=== PATIENT | female | born 1990 | race Caucasian/White ===

== ENCOUNTER 2021-05-30 02:47 | Emergency (ER) | payer OTHER ==
[2021-05-30 03:06] VITALS: BP 119/65; PULSE 93; TEMP 98.2; BMI 19.9
[2021-05-30] MEDS ORDERED: DEXAMETHASONE 4 MG TABLET (FP) PO ONE (03:30)
[2021-05-30] MEDS ORDERED: DEXAMETHASONE SOD PHOSPHATE 10 MG/1 ML VIAL ONE (03:43)
[2021-05-30] MEDS ORDERED: ALBUTEROL SO4 2.5/IPRATROPIUM 0.5 INH SOL 3 ML VIAL.NEB. NEB ONE (03:56)
[2021-05-30] MEDS ORDERED: ALBUTEROL SO4 0.042% IH SOL 1.25 MG/3 ML VIAL.NEB NEB ONE (06:02)
[2021-05-30] MEDS ORDERED: ALBUTEROL SO4 0.083% IH SOL 2.5 MG/3 ML VIAL.NEB. NEB ONE (06:03)
== END 2021-05-30 06:10 | disposition home or self-care (01) ==
LOC: JER 02:47
PROC: 3E0F7GC Introduction of Other Therapeutic Substance into Respiratory Tract, Via Natural or Artificial Opening (ICD-10-PCS; principal; 2021-05-30)
DX: J45.901 Unspecified asthma with (acute) exacerbation (principal)
CPT/HCPCS: 71045-TC-FY; 84703; 99284-25; C9803; U0003; U0005

== ENCOUNTER 2022-05-08 18:51 | Emergency (ER) | payer OTHER ==
[2022-05-08 19:07] VITALS: BP 148/94; PULSE 86; RESP 18; TEMP 98.5; BMI 22.3
[2022-05-08] MEDS ORDERED: ALBUTEROL SO4 2.5/IPRATROPIUM 0.5 INH SOL 3 ML VIAL.NEB. NEB ONE ×2 (19:19→19:46)
[2022-05-08] MEDS ORDERED: predniSONE 20 MG TABLET (UD) PO ONE (19:26)
[2022-05-08] MEDS ORDERED: predniSONE 20 MG TABLET (UD) ONE (19:46)
== END 2022-05-08 20:35 | disposition home or self-care (01) ==
LOC: JER 18:51
PROC: 3E0F7GC Introduction of Other Therapeutic Substance into Respiratory Tract, Via Natural or Artificial Opening (ICD-10-PCS; principal; 2022-05-08)
DX: O99.512 Diseases of the respiratory system complicating pregnancy, second trimester (principal); J45.21 Mild intermittent asthma with (acute) exacerbation; Z3A.15 15 weeks gestation of pregnancy
CPT/HCPCS: 0241U-QW; 99284-25

== ENCOUNTER 2022-07-03 20:32 | Emergency (ER) | payer OTHER ==
[2022-07-03 20:38] VITALS: BP 134/87; RESP 22; TEMP 98.3; BMI 23.5
[2022-07-03] MEDS ORDERED: ALBUTEROL SO4 2.5/IPRATROPIUM 0.5 INH SOL 3 ML VIAL.NEB. NEB ONE (21:03)
[2022-07-03] MEDS: ALBUTEROL SO4 2.5/IPRATROPIUM 0.5 INH SOL 3 ML VIAL.NEB. NEB SCH ×2 (21:05→21:06)
[2022-07-03] MEDS ORDERED: DEXAMETHASONE SOD PHOSPHATE 10 MG/1 ML VIAL IM ONE (21:11)
[2022-07-03] MEDS ORDERED: DEXAMETHASONE SOD PHOSPHATE 10 MG/1 ML VIAL ONE (21:14)
[2022-07-03 22:56] VITALS: PULSE 100
[2022-07-03] MEDS ORDERED: ACETAMINOPHEN 500 MG TABLET (FP) PO ONE (22:56)
[2022-07-03] MEDS ORDERED: ACETAMINOPHEN 500 MG TABLET (FP) ONE (22:57)
== END 2022-07-03 23:00 | disposition home or self-care (01) ==
LOC: JERFT 20:32
PROC: 3E0F7GC Introduction of Other Therapeutic Substance into Respiratory Tract, Via Natural or Artificial Opening (ICD-10-PCS; principal; 2022-07-03)
PROC: 3E023NZ Introduction of Analgesics, Hypnotics, Sedatives into Muscle, Percutaneous Approach (ICD-10-PCS; 2022-07-03)
DX: J45.901 Unspecified asthma with (acute) exacerbation (principal); J09.X2 Influenza due to identified novel influenza A virus with other respiratory manifestations
CPT/HCPCS: 0241U-QW; 71045-TC-FY; 99284-25; J1100

== ENCOUNTER 2023-09-01 00:07 | Emergency (ER) | payer SELFPAY ==
[2023-09-01 00:15] VITALS: BP 117/74; PULSE 95; RESP 18; TEMP 98.2; BMI 25.7
[2023-09-01] MEDS ORDERED: predniSONE 20 MG TABLET (UD) PO ONE (00:46)
[2023-09-01] MEDS ORDERED: ALBUTEROL SO4 2.5/IPRATROPIUM 0.5 INH SOL 3 ML VIAL.NEB. NEB ONE (01:01)
[2023-09-01] MEDS ORDERED: predniSONE 20 MG TABLET (UD) ONE (01:02)
[2023-09-01] MEDS: ALBUTEROL SO4 2.5/IPRATROPIUM 0.5 INH SOL 3 ML VIAL.NEB. NEB SCH ×3 (01:11→01:40)
== END 2023-09-01 02:32 | disposition home or self-care (01) ==
LOC: JER 00:07
PROC: 3E0F7GC Introduction of Other Therapeutic Substance into Respiratory Tract, Via Natural or Artificial Opening (ICD-10-PCS; principal; 2023-09-01)
DX: R06.02 Shortness of breath (principal); R09.81 Nasal congestion; J45.901 Unspecified asthma with (acute) exacerbation; Z20.822 Contact with and (suspected) exposure to COVID-19
CPT/HCPCS: 0241U-QW; 99283-25

== ENCOUNTER 2024-04-23 09:07 | Emergency (ER) | payer OTHER ==
[2024-04-23 09:14] VITALS: BP 143/97; PULSE 99; RESP 18; TEMP 97.3; BMI 25.7
[2024-04-23] MEDS ORDERED: FAMOTIDINE 20 MG/50 ML IVPB 20 MG/50 ML MG IVPB ONE (09:30)
[2024-04-23] MEDS ORDERED: ONDANSETRON 4 MG/2 ML VIAL ONE (09:30)
[2024-04-23] MEDS: SODIUM CHLORIDE 0.9% 1000 ML INFUS.BAG IV ONE (09:40)
[2024-04-23] MEDS: FAMOTIDINE 20 MG/50 ML IVPB 20 MG/50 ML MG IVPB ONE (09:41)
[2024-04-23] MEDS: MAG HYDROX/AL HYDROX/SIMETH 30 ML UNIT-DOSE CUP PO ONE ×2 (09:41→12:24)
[2024-04-23] MEDS: ONDANSETRON 4 MG/2 ML VIAL IVPUSH ONE (09:41)
[2024-04-23 10:17] LABS: HCG,QUALITATIVE URINE Negative
[2024-04-23 10:24] LABS: HEMATOCRIT 46.7 % (32.4-45.2); HEMOGLOBIN 15.2 G/dL (10.7-15.3); MCH 28.6 pg (25.7-33.7); MCHC 32.4 g/dl (32.0-36.0); MEAN CELL VOLUME 88.3 fl (80-96); MEAN PLT VOLUME 9.2 fl (7.5-11.1); RBC 5.29 10^6/uL (3.60-5.2); RDW 14.6 % (11.6-15.6); WHITE BLOOD COUNT 8.2 10^3/uL (4.0-10.8)
[2024-04-23 10:29] LABS: ALBUMIN 4.7 g/dl (3.4-5.0); CALCIUM 9.4 mg/dl (8.5-10.1); CREATININE 1.3 mg/dl (0.6-1.3); POTASSIUM 4.8 mmol/L (3.5-5.1); TOT PROT 8.1 g/dl (6.4-8.2)
[2024-04-23] MEDS ORDERED: ACETAMINOPHEN INJECTION 100 ML ONE (10:42)
[2024-04-23] MEDS: ACETAMINOPHEN 1000 MG/100 ML BAG IVPB ONE (10:48)
[2024-04-23 10:49] LABS: PLATELET ESTIMATE ADEQUATE
[2024-04-23] MEDS ORDERED: KETOROLAC TROMETHAMINE 15 MG/ML VIAL ONE (11:50)
[2024-04-23] MEDS: KETOROLAC TROMETHAMINE 15 MG/ML VIAL IVPUSH ONE (11:57)
[2024-04-23] MEDS ORDERED: LIDOCAINE VISCOUS 2% ORAL/TOP 15 ML UNIT-DOSE CUP ONE (12:21)
[2024-04-23] MEDS ORDERED: MAG HYDROX/AL HYDROX/SIMETH 30 ML UNIT-DOSE CUP ONE (12:21)
[2024-04-23] MEDS: LIDOCAINE VISCOUS 2% ORAL/TOP 15 ML UNIT-DOSE CUP MM ONE (12:25)
== END 2024-04-23 13:27 | disposition home or self-care (01) ==
LOC: FER 09:07
PROC: 3E033GC Introduction of Other Therapeutic Substance into Peripheral Vein, Percutaneous Approach (ICD-10-PCS; principal; 2024-04-23)
PROC: 3E033NZ Introduction of Analgesics, Hypnotics, Sedatives into Peripheral Vein, Percutaneous Approach (ICD-10-PCS; 2024-04-23)
PROC: 3E0333Z Introduction of Anti-inflammatory into Peripheral Vein, Percutaneous Approach (ICD-10-PCS; 2024-04-23)
PROC: 3E033GC Introduction of Other Therapeutic Substance into Peripheral Vein, Percutaneous Approach (ICD-10-PCS; 2024-04-23)
DX: R10.31 Right lower quadrant pain (principal); R11.2 Nausea with vomiting, unspecified; R19.7 Diarrhea, unspecified
CPT/HCPCS: 36415; 74177-TC; 80053; 81003; 81015; 83690; 84703; 85027; 96365; 96375; 99285-25; J0131; Q9967

== ENCOUNTER 2024-08-29 17:17 | Emergency (ER) | payer OTHER ==
[2024-08-29 17:37] VITALS: BP 134/84; PULSE 102; RESP 18; TEMP 99.7; BMI 25.7
[2024-08-29] MEDS ORDERED: ACETAMINOPHEN 500 MG TABLET (FP) ONE (18:21)
[2024-08-29] MEDS: ACETAMINOPHEN 500 MG TABLET (FP) PO ONE (18:27)
[2024-08-29] MEDS ORDERED: ALBUTEROL SO4 2.5/IPRATROPIUM 0.5 INH SOL 3 ML VIAL.NEB. NEB ONE (18:28)
[2024-08-29] MEDS ORDERED: predniSONE 20 MG TABLET (UD) ONE (18:28)
[2024-08-29] MEDS: ALBUTEROL SO4 2.5/IPRATROPIUM 0.5 INH SOL 3 ML VIAL.NEB. NEB SCH (18:34)
[2024-08-29] MEDS: predniSONE 20 MG TABLET (UD) PO ONE (18:34)
[2024-08-29 18:54] LABS: THROAT:GRP A STREP NOT DETECTED (NOTDETECTED)
== END 2024-08-29 18:57 | disposition home or self-care (01) ==
LOC: JERFT 17:17 → JER 17:17 → JERFT 18:57
PROC: 3E0F7GC Introduction of Other Therapeutic Substance into Respiratory Tract, Via Natural or Artificial Opening (ICD-10-PCS; principal; 2024-08-29)
DX: J10.1 Influenza due to other identified influenza virus with other respiratory manifestations (principal); R50.9 Fever, unspecified; R05.9 Cough, unspecified; M79.10 Myalgia, unspecified site; R06.2 Wheezing; Z20.822 Contact with and (suspected) exposure to COVID-19
CPT/HCPCS: 0241U-QW; 87651; 99283-25

== ENCOUNTER 2024-08-31 10:13 | Inpatient (IN) | payer OTHER ==
[2024-08-31] MEDS ORDERED: ALBUTEROL SO4 0.083% IH SOL 2.5 MG/3 ML VIAL.NEB. NEB ONE ×2 (10:36→17:05)
[2024-08-31] MEDS: ALBUTEROL SO4 0.083% IH SOL 2.5 MG/3 ML VIAL.NEB. NEB ONE (10:42)
[2024-08-31 11:33] LABS: BASO % 0.4 % (0-2.0); EOS % 0.1 % (0-4.5); LYMPH % 10.3 % (8-40); MCH 28.7 pg (25.7-33.7); MCHC 32.6 g/dl (32.0-36.0); MEAN PLT VOLUME 8.9 fl (7.5-11.1); MONO % 9.8 % (3.8-10.2); NEUT % 79.4 % (42.8-82.8); PLATELET COUNT 193 10^3/uL (134-434); RBC 4.89 M/mm3 (3.60-5.2); RDW 14.5 % (11.6-15.6); WHITE BLOOD COUNT 7.1 K/mm3 (4.0-10.0)
[2024-08-31 11:49] LABS: POTASSIUM 3.7 mmol/L (3.5-5.1)
[2024-08-31 11:51] LABS: EPI CELLS 9 /uL (0-25.1); HYALINE CASTS 1 /uL (0-3.1); PH,URINE 5.5 (5.0-8.0); URINE APPEARANCE CLEAR; URINE BACTERIA 217 /uL (0-1359); URINE BILIRUBIN NEGATIVE (NEGATIVE); URINE COLOR YELLOW; URINE GLUCOSE (UA) NEGATIVE (NEGATIVE); URINE KETONE NEGATIVE (NEGATIVE); URINE LEUK ESTERASE NEGATIVE (NEGATIVE); URINE NITRITE NEGATIVE (NEGATIVE); URINE PROTEIN 2+ (NEGATIVE); URINE UROBILINOGEN 0.2 mg/dL (0.2-1.0); URINE WBC 8 /uL (0-25.8)
[2024-08-31 11:51] LABS: ALBUMIN 3.9 g/dl (3.4-5.0)
[2024-08-31 11:54] LABS: CREATININE 1.5 mg/dL (0.55-1.3)
[2024-08-31 11:56] LABS: BILIRUBIN,TOTAL 0.3 mg/dL (0.2-1); TOT PROT 7.9 g/dl (6.4-8.2)
[2024-08-31] MEDS: SODIUM CHLORIDE 0.9% 500 ML INFUS.BAG IV ONE (12:01)
[2024-08-31 12:21] LABS: URINE RBC 19 /uL (0-23.9)
[2024-08-31 12:26] LABS: MAGNESIUM 2.4 mg/dL (1.8-2.4)
[2024-08-31] MEDS: SODIUM CHLORIDE 1,000 ML IV STA (15:02)
[2024-08-31] MEDS ORDERED: ACETAMINOPHEN INJECTION 100 ML ONE (15:11)
[2024-08-31] MEDS: ACETAMINOPHEN 1000 MG/100 ML BAG IVPB ONE (15:12)
[2024-08-31] MEDS: ALBUTEROL SO4 0.083% IH SOL 2.5 MG/3 ML VIAL.NEB. NEB PRN (17:44)
[2024-08-31 23:19] VITALS: RESP 18; BMI 25.4
[2024-09-01] MEDS: ACETAMINOPHEN 1000 MG/100 ML BAG IVPB ONE (03:17)
[2024-09-01] MEDS: MELATONIN 5 MG TABLETS PO ONE (04:39)
[2024-09-01 07:59] LABS: HEMATOCRIT 43.6 % (32.4-45.2); HEMOGLOBIN 14.3 GM/dL (10.7-15.3); MCH 28.9 pg (25.7-33.7); MCHC 32.8 g/dl (32.0-36.0); MEAN CELL VOLUME 88.1 fl (80-96); MEAN PLT VOLUME 8.9 fl (7.5-11.1); PLATELET COUNT 185 10^3/uL (134-434); RBC 4.95 M/mm3 (3.60-5.2); RDW 14.4 % (11.6-15.6); WHITE BLOOD COUNT 6.2 K/mm3 (4.0-10.0)
[2024-09-01 08:10] LABS: POTASSIUM 4.1 mmol/L (3.5-5.1)
[2024-09-01 08:13] LABS: BLOOD UREA NITROGEN 17.1 mg/dL (7-18); CALCIUM 8.6 mg/dL (8.5-10.1); MAGNESIUM 2.1 mg/dL (1.8-2.4)
[2024-09-01 08:16] LABS: CREATININE 1.3 mg/dL (0.55-1.3)
[2024-09-01 08:17] LABS: PHOSPHOROUS 4.2 mg/dL (2.5-4.9)
[2024-09-01] MEDS: OSELTAMIVIR PHOSPHATE 75 MG CAPSULE PO SCH (09:43)
[2024-09-01] MEDS: methylPREDNISolone NA SUCC 40 MG/1 ML VIAL IVPUSH SCH (09:43)
[2024-09-01] MEDS: ACETAMINOPHEN 325 MG TABLET (FP) PO PRN (09:43)
[2024-09-01] MEDS: SODIUM CHLORIDE 1,000 ML IV SCH (09:44)
[2024-09-01] MEDS ORDERED: ALBUTEROL SO4 0.083% IH SOL 2.5 MG/3 ML VIAL.NEB. NEB SCH (12:00)
[2024-09-01] MEDS ORDERED: IPRATROPIUM BR 0.02% 0.5 MG/2.5 ML VIAL.NEB. NEB SCH (14:00)
[2024-09-01] MEDS: ALBUTEROL SO4 2.5/IPRATROPIUM 0.5 INH SOL 3 ML VIAL.NEB. NEB SCH (15:28)
[2024-09-01] MEDS: MAG HYDROX/AL HYDROX/SIMETH 30 ML UNIT-DOSE CUP PO ONE (20:37)
[2024-09-01] MEDS: BUDESONIDE/FORMETEROL FUMARATE 160/4.5 mcg INHALER IH SCH (21:02)
[2024-09-02 08:26] LABS: BASO % 0.1 % (0-2.0); HEMATOCRIT 41.7 % (32.4-45.2); HEMOGLOBIN 14.2 GM/dL (10.7-15.3); LYMPH % 10.3 % (8-40); MCH 29.6 pg (25.7-33.7); MCHC 34.1 g/dl (32.0-36.0); MEAN CELL VOLUME 86.9 fl (80-96); MONO % 8.5 % (3.8-10.2); NEUT % 81.1 % (42.8-82.8); PLATELET COUNT 196 10^3/uL (134-434); RDW 14.4 % (11.6-15.6); WHITE BLOOD COUNT 7.3 K/mm3 (4.0-10.0)
[2024-09-02 08:39] LABS: POTASSIUM 4.5 mmol/L (3.5-5.1)
[2024-09-02 08:42] LABS: CALCIUM 9.1 mg/dL (8.5-10.1)
[2024-09-02 08:43] LABS: ALBUMIN 3.5 g/dl (3.4-5.0); BLOOD UREA NITROGEN 16.8 mg/dL (7-18); MAGNESIUM 2.5 mg/dL (1.8-2.4)
[2024-09-02 08:46] LABS: CREATININE 1.3 mg/dL (0.55-1.3)
[2024-09-02 08:48] LABS: BILIRUBIN,TOTAL 0.3 mg/dL (0.2-1); TOT PROT 7.6 g/dl (6.4-8.2)
[2024-09-02] MEDS: PRENATAL VITAMINS W/ FOLIC ACID TABLET (FP) PO SCH (11:46)
[2024-09-02] MEDS: CALCIUM CARBONATE 650 MG TABLET PO PRN (21:21)
[2024-09-03] MEDS: methylPREDNISolone NA SUCC 40 MG/1 ML VIAL IVPUSH SCH (05:15)
[2024-09-03] MEDS: predniSONE 20 MG TABLET (UD) PO SCH (10:20)
[2024-09-03 11:43] VITALS: BP 130/77; PULSE 97; TEMP 97.5
== END 2024-09-03 13:15 | disposition home or self-care (01) | DRG 566 ==
LOC: JER 10:13 → JERBED 16:03 → J7W 22:42 → OBSVTOIN 09-01 15:20
PROVIDERS: ADMIT Internal Medicine; ATTEND Physician Assistant
DX: O99.511 Diseases of the respiratory system complicating pregnancy, first trimester (principal); O98.511 Other viral diseases complicating pregnancy, first trimester; J10.1 Influenza due to other identified influenza virus with other respiratory manifestations; J45.901 Unspecified asthma with (acute) exacerbation; O21.1 Hyperemesis gravidarum with metabolic disturbance; Z3A.01 Less than 8 weeks gestation of pregnancy; O34.81 Maternal care for other abnormalities of pelvic organs, first trimester; N83.201 Unspecified ovarian cyst, right side; R12 Heartburn
CPT/HCPCS: 0241U-QW; 36415; 71045-TC-FY; 76801-TC; 80048; 80053; 81003; 82962; 83735; 84100; 84702; 84703; 85025; 85027; 87086; 87651; 93005; 93010; 94150; 94640; 99283-25; 99285-25; G0378; J0131

== ENCOUNTER 2025-04-13 22:06 | Inpatient (IN) | payer OTHER ==
[2025-04-13] MEDS: LACTATED RINGERS SOLUTION 500 ML IV ONE (22:45)
[2025-04-13] MEDS: LACTATED RINGERS SOLUTION 500 ML IV SCH (23:15)
[2025-04-14] MEDS: morphine CARPU-JECT 4 MG/1 ML DISP.SYRIN IVPUSH ONE (00:40)
[2025-04-14] MEDS: LACTATED RINGERS SOLUTION 1,000 ML IV SCH (01:00)
[2025-04-14 03:59] LABS: ABSOLUTE IMMATURE GRANULOCYTES 0.07 x10^3/uL (0.0-0.031); BASOPHILS # 0.06 x10^3/uL (0.01-0.08); EOSINOPHIL % 2.6 % (0.7-5.8); EOSINOPHILS # 0.44 x10^3/uL (0.04-0.36); MCHC 33.3 g/dl (32.2-35.5); MEAN CELL VOLUME 86.7 fl (79.4-94.8); MEAN PLT VOLUME 11.1 fl (9.4-12.3); MONOCYTE # 1.32 x10^3/uL (0.24-0.86); MONOCYTE % 7.7 % (4.7-12.5); RDW 13.3 % (12.1-16.8)
[2025-04-14 04:14] VITALS: BMI 28.8
[2025-04-14 04:20] LABS: GLUCOSE,RANDOM 98.0 mg/dL (74-106); TOT PROT 7.5 g/dl (6.4-8.2)
[2025-04-14 04:21] LABS: CO2 19.0 mmol/L (21-32)
[2025-04-14 04:23] LABS: ALK PHOS 167.0 U/L (40-150)
[2025-04-14 04:26] LABS: CREATININE 1.36 mg/dL (0.55-1.3); SGOT/AST 34.0 U/L (5-34); SGPT/ALT 23.0 U/L (0-55)
[2025-04-14 04:30] LABS: INR 0.92 (0.83-1.09); PROTHROMBIN TIME (PATIENT) 10.0 SEC (9.7-13.0)
[2025-04-14 04:33] LABS: ACTIVATED PTT 26.1 SECONDS (25.2-36.5)
[2025-04-14] MEDS ORDERED: FENTANYL/BUPIVACAINE/NS/PF - PCEA - 50 ML DISP.SYRIN EP ONE ×2 (04:33→08:01)
[2025-04-14] MEDS ORDERED: NALOXONE HCL 0.4 MG/ML VIAL IVPUSH PRN (04:49)
[2025-04-14] MEDS: FENTANYL/BUPIVACAINE/NS/PF - PCEA - 50 ML DISP.SYRIN EP SCH (05:05)
[2025-04-14] MEDS ORDERED: OXYTOCIN 20 UNITS in 0.9% NS 20 UNIT/1,000 ML INFUS.BAG IV ONE ×2 (07:19→14:02)
[2025-04-14] MEDS ORDERED: OXYTOCIN 30 UNITS in 0.9% NS 30 UNIT/500 ML INFUS.BAG IVPB ONE (13:29)
[2025-04-14] MEDS: OXYTOCIN 20 UNITS in 0.9% NS 20 UNIT/1,000 ML INFUS.BAG IV SCH (14:00)
[2025-04-14] MEDS ORDERED: BISACODYL 10 MG SUPP.RECT RC PRN (14:21)
[2025-04-14] MEDS ORDERED: METHYLERGONOVINE MALEATE 0.2 MG/1 ML AMP IM PRN (14:21)
[2025-04-14 14:32] LABS: CORD BASE EXCESS -10.000 mmol/L (0-2); CORD BASE EXCESS -9.800 mmol/L (0-2); CORD HCO3 20.3 mmHg (20-29); CORD HCO3 21.7 mmHg (20-29); CORD PCO2 62.7 mmHg (30-78); CORD PCO2 75.9 mmHg (30-78); CORD pH 7.075 (7.14-7.44); CORD pH 7.129 (7.14-7.44)
[2025-04-14] MEDS: ACETAMINOPHEN 325 MG TABLET (FP) PO PRN (19:04)
[2025-04-14] MEDS: BENZOCAINE 20% 57 GM BOTTLE TP PRN (19:09)
[2025-04-14] MEDS: SENNOSIDES/DOCUSATE COMBO (SENNA PLUS) TABLET (UD) PO PRN (21:22)
[2025-04-15 07:23] LABS: ABSOLUTE IMMATURE GRANULOCYTES 0.06 x10^3/uL (0.0-0.031); BASOPHILS # 0.06 x10^3/uL (0.01-0.08); EOSINOPHIL % 1.7 % (0.7-5.8); EOSINOPHILS # 0.25 x10^3/uL (0.04-0.36); MCHC 32.8 g/dl (32.2-35.5); MEAN CELL VOLUME 89.3 fl (79.4-94.8); MEAN PLT VOLUME 11.9 fl (9.4-12.3); MONOCYTE # 1.60 x10^3/uL (0.24-0.86); MONOCYTE % 10.7 % (4.7-12.5); RDW 13.3 % (12.1-16.8)
[2025-04-15] MEDS: PRENATAL VITAMINS W/ FOLIC ACID TABLET (FP) PO SCH (09:05)
[2025-04-15] MEDS: IBUPROFEN 600 MG TABLET (FP) PO PRN (09:05)
[2025-04-16 07:40] LABS: ABSOLUTE IMMATURE GRANULOCYTES 0.04 x10^3/uL (0.0-0.031); BASOPHILS # 0.06 x10^3/uL (0.01-0.08); EOSINOPHIL % 3.9 % (0.7-5.8); EOSINOPHILS # 0.45 x10^3/uL (0.04-0.36); MCHC 32.8 g/dl (32.2-35.5); MEAN CELL VOLUME 88.8 fl (79.4-94.8); MEAN PLT VOLUME 11.4 fl (9.4-12.3); MONOCYTE # 1.05 x10^3/uL (0.24-0.86); MONOCYTE % 9.0 % (4.7-12.5); RDW 13.3 % (12.1-16.8)
[2025-04-16] MEDS: BENZOCAINE 28 GM HEMORRHOIDAL OINTMENT TP PRN (09:15)
[2025-04-16] MEDS: WITCH HAZEL 50% (TUCKS) 40 PAD/JAR PAD TP PRN (09:18)
[2025-04-16 09:20] LABS: GLUCOSE,RANDOM 78.0 mg/dL (74-106); TOT PROT 6.8 g/dl (6.4-8.2)
[2025-04-16 09:21] LABS: CO2 19.0 mmol/L (21-32)
[2025-04-16 09:23] LABS: ALK PHOS 123.0 U/L (40-150)
[2025-04-16 09:26] LABS: CREATININE 1.68 mg/dL (0.55-1.3); SGOT/AST 77.0 U/L (5-34); SGPT/ALT 32.0 U/L (0-55)
[2025-04-16 12:10] LABS: GLUCOSE,RANDOM 80.0 mg/dL (74-106); TOT PROT 7.6 g/dl (6.4-8.2)
[2025-04-16] MEDS ORDERED: MAGNESIUM 4GM/H20 - 4 GM/100 ML IVPB IVPB ONE (12:10)
[2025-04-16] MEDS ORDERED: MAGNESIUM 4GM/H20 - 100 ML IVPB ONE (12:11)
[2025-04-16 12:12] LABS: CO2 28.0 mmol/L (21-32)
[2025-04-16 12:13] LABS: ALK PHOS 139.0 U/L (40-150)
[2025-04-16] MEDS: MAGNESIUM 4GM/H20 - 4 GM/100 ML IVPB IVPB ONE (12:15)
[2025-04-16] MEDS: ELECTROLYTE-148 SOLN 1,000 ML IV SCH (12:15)
[2025-04-16 12:16] LABS: SGOT/AST 76.0 U/L (5-34); SGPT/ALT 38.0 U/L (0-55)
[2025-04-16 12:17] LABS: CREATININE 1.68 mg/dL (0.55-1.3)
[2025-04-16] MEDS ORDERED: MAGNESIUM SULFATE 20GM/500ML - 20 GM/500 ML INFUS.BAG IVPB SCH (12:30)
[2025-04-16] MEDS ORDERED: MAGNESIUM SULFATE 20GM/500ML - 20 GM/500 ML INFUS.BAG ONE (12:54)
[2025-04-16] MEDS: MAGNESIUM SULFATE 20GM/500ML - 20 GM/500 ML INFUS.BAG IVPB SCH (12:55)
[2025-04-16] MEDS ORDERED: ACETAMINOPHEN 325 MG TABLET (FP) ONE ×2 (13:02→18:48)
[2025-04-16] MEDS: LABETALOL HCL 200 MG TABLET (FP) PO SCH (19:15)
[2025-04-16] MEDS ORDERED: LABETALOL HCL 200 MG TABLET (FP) ONE (19:15)
[2025-04-16 22:20] VITALS: TEMP 97.7
[2025-04-17] MEDS ORDERED: ACETAMINOPHEN 325 MG TABLET (FP) ONE (05:46)
[2025-04-17 07:31] LABS: ABSOLUTE IMMATURE GRANULOCYTES 0.06 x10^3/uL (0.0-0.031); BASOPHILS # 0.05 x10^3/uL (0.01-0.08); EOSINOPHIL % 4.8 % (0.7-5.8); EOSINOPHILS # 0.56 x10^3/uL (0.04-0.36); MCHC 32.2 g/dl (32.2-35.5); MEAN CELL VOLUME 90.0 fl (79.4-94.8); MEAN PLT VOLUME 10.9 fl (9.4-12.3); MONOCYTE # 0.94 x10^3/uL (0.24-0.86); MONOCYTE % 8.0 % (4.7-12.5); RDW 13.3 % (12.1-16.8)
[2025-04-17 07:42] VITALS: RESP 18
[2025-04-17 08:49] LABS: GLUCOSE,RANDOM 79 mg/dL (74-106)
[2025-04-17 08:50] LABS: CO2 26 mmol/L (21-32); TOT PROT 6.9 g/dl (6.4-8.2)
[2025-04-17 08:52] LABS: ALK PHOS 131 U/L (40-150)
[2025-04-17 08:55] LABS: SGOT/AST 56 U/L (5-34); SGPT/ALT 38 U/L (0-55)
[2025-04-17 09:01] LABS: CREATININE 1.62 mg/dL (0.55-1.3)
[2025-04-17] MEDS ORDERED: MAGNESIUM SULFATE 20GM/500ML - 20 GM/500 ML INFUS.BAG ONE (10:02)
[2025-04-17] MEDS ORDERED: LABETALOL HCL 200 MG TABLET (FP) ONE (10:02)
[2025-04-17] MEDS: DOCUSATE SODIUM 100 MG CAPSULE (FP) PO PRN (11:00)
[2025-04-17 12:25] VITALS: BP 134/89; PULSE 89
== END 2025-04-17 13:40 | disposition home or self-care (01) | DRG 560 ==
LOC: JDEL 22:06 → JLDR 04-14 03:35 → J3W 04-14 16:05 → JLDR 04-16 12:06 → J3W 04-16 16:25 → JLDR 04-16 16:30
PROVIDERS: ADMIT Obstetrics & Gynecology; ATTEND Obstetrics & Gynecology
PROC: 10E0XZZ Delivery of Products of Conception, External Approach (ICD-10-PCS; principal; 2025-04-14)
PROC: 0KQM0ZZ Repair Perineum Muscle, Open Approach (ICD-10-PCS; 2025-04-14)
PROC: 0W8NXZZ Division of Female Perineum, External Approach (ICD-10-PCS; 2025-04-14)
DX: O70.1 Second degree perineal laceration during delivery (principal); O14.94 Unspecified pre-eclampsia, complicating childbirth; Z3A.39 39 weeks gestation of pregnancy; Z37.0 Single live birth
CPT/HCPCS: 36415; 36600; 59409; 80053; 82570; 82803; 82977; 83010; 83735; 84156; 84550; 85025; 85610; 85730; 86780; 86850; 86900; 86901